=== PATIENT | male | born 1990 | race Caucasian/White ===

== ENCOUNTER 2019-02-17 16:29 | Emergency (ER) | payer OTHER ==
[~2019-02-17] VITALS: Ht 170.2 cm; Wt 87.1 kg
[2019-02-17 16:55] VITALS: BP 162/100; Ht 170.2 cm; Wt 87.1 kg
[2019-02-17 17:58] LABS: microscopic required? NO
[2019-02-17 18:17] LABS: urine erythrocyte NEGATIVE (NEGATIVE)
== END 2019-02-17 19:47 | disposition left against medical advice (07) ==
LOC: EDBD 16:29 → ED 16:29
DX: Z53.21 Procedure and treatment not carried out due to patient leaving prior to being seen by health care provider (principal)

== ENCOUNTER 2019-02-18 08:48 | Emergency (ER) | payer OTHER ==
[~2019-02-18] VITALS: Ht 170.2 cm; Wt 86.2 kg
[2019-02-18 09:29] VITALS: Ht 170.2 cm; Wt 86.2 kg
[2019-02-18 10:41] LABS: CALCIUM 9.3 mg/dL (8.5-10.1); CARBON DIOXIDE 31.6 mmol/L (21-32); CHLORIDE SERUM 103 mmol/L (98-107); GFR1 > 60 mL/min; GLUCOSE SERUM 82 mg/dL (74-106); SODIUM SERUM 140 mmol/L (136-145)
[2019-02-18 10:45] LABS: ALKALINE PHOSPHATASE 87 U/L (46-116); ALT/SGPT 34 U/L (16-63); AST/SGOT 13 U/L (15-37); BILIRUBIN TOTAL 0.5 mg/dL (0.20-1.00); LIPASE 192 IU/L (73-393); TOTAL PROTEIN, SERUM 7.4 g/dL (6.4-8.2)
[2019-02-18 11:13] LABS: BASOPHIL % 0.4 % (0-2); PLATELET COUNT 221 x10^3mcL (130-400)
[2019-02-18 12:11] VITALS: BP 137/82
== END 2019-02-18 12:51 | disposition home or self-care (01) ==
LOC: ED 08:48
PROVIDERS: Emergency Medicine
DX: M54.5 Low back pain (principal); I10 Essential (primary) hypertension; K42.9 Umbilical hernia without obstruction or gangrene; Z90.89 Acquired absence of other organs
CPT/HCPCS: 36415; J7030; Q9967